=== PATIENT | female | born 1950 | race African-American/Black ===

== ENCOUNTER 2019-06-22 10:02 | Outpatient (CLI) | payer MEDICARE, SELFPAY ==
--- NOTE | 2019-06-22 | ECHO_ITS ---
Patient Info Name: Beth Ca Age: 68 years : 1950 Gender: Female Ht: 62 in Wt: 106 lbs BSA: 1.45 m2 HR: 75 bpm BP: 121 / 71 mmHg Heart Rhythm: Sinus Rhythm Technical Quality: Good Exam Date: 06/22/2019 12:01 PM Exam Location: [facility] Pulmonary Patient Status: Outpatient Admit Date: 06/22/2019 Staff Ordering Physician: Giuseppe Solomon MD Trailer Rental Clerk: Talha Vazquez RDCS Attending Provider: Giuseppe Solomon MD Referring Physician: Neha LEW; Exam Type: CA echo doppler color flow Study Info Indications Z01.810 - Encounter for preprocedural cardiovascular examination Complete two-dimensional, color flow and Doppler transthoracic echocardiogram is performed. Strain analysis performed. History/Risk Factors Clearance for chemotherapy treatment. Summary 1. Left ventricular systolic function is normal, estimated at 65-70%. 2. There is no increased left ventricular wall thickness. 3. The left ventricular diastolic function is grade I diastolic dysfunction. 4. Global longitudinal strain is mildly elevated at -16 %. 5. There is no mitral valve regurgitation. 6. Moderate pulmonary hypertension, estimated pulmonary arterial systolic pressure is 50 mmHg. 7. There is mild tricuspid valve regurgitation. Left Ventricle Left ventricular chamber dimension is normal. Left ventricular systolic function is normal, estimated at 65-70%. There is no increased left ventricular wall thickness. The left ventricular diastolic function is grade I diastolic dysfunction. Global longitudinal strain is mildly elevated at -16 %. Right Ventricle Right ventricular chamber dimension is normal. Right ventricular systolic function is normal. Left Atria Left atrial chamber dimension is normal. Right Atria Right atrial chamber dimension is normal. Aortic Valve The aortic valve is not well visualized. There is no aortic valve stenosis. There is no aortic valve regurgitation. Pulmonic Valve The pulmonic valve is not well visualized. Mitral Valve The mitral valve has thickened leaflets. There is no mitral valve regurgitation. Tricuspid Valve The tricuspid valve leaflets are normal. There is mild tricuspid valve regurgitation. Moderate pulmonary hypertension, estimated pulmonary arterial systolic pressure is 50 mmHg. Pericardium/Pleural The pericardium appears normal. There is no pericardial effusion. Inferior Vena Cava Normal inferior vena cava with >50% collapse upon inspiration consistent with normal right atrial pressure, 5 mmHg. Aorta The aortic root size at the sinus of Valsalva is normal. Left Ventricular Outflow Tract Name Value Normal LVOT 2D LVOT Diameter 1.8 cm LVOT Doppler LVOT Peak Gradient 3 mmHg LVOT Mean Gradient 2 mmHg LVOT VTI 16 cm LVOT VTI/AV VTI Ratio 0.7 LVOT Stroke Volume 40 ml LVOT CO 3.2 l/min LVOT CI 2.2 l/min/m2 Mitral Valve
--- NOTE | ~2019-06-22 | MR_ITS ---
EXAMINATION: MR breast BI wo/w con INDICATION: Malignant neoplasm of the upper outer quadrant of the left breast TECHNIQUE: Axial VIBRANT pre and dynamic post contrast, Sagittal VIBRANT post contrast, Axial T2 STIR ASSET COMPARISON: None CONTRAST: Multihance, 10 cc BREAST COMPOSITION: Heterogeneous fibroglandular tissue FINDINGS: RIGHT BREAST: Asymmetry size, right smaller than left, consistent with lumpectomy change. There is sk in thickening of the outer right breast at the site of lumpectomy. A 2.8 x 1.0 cm seroma is seen in t he posterior third of the outer breast, consistent with a postoperative seroma. There is minimal back ground parenchymal enhancement. No abnormal enhancement is present after contrast administration. No pathologically enlarged axillary or internal mammary lymph nodes are identified. LEFT BREAST: There is minimal background parenchymal enhancement. No abnormal enhancement is present after contrast administration. No pathologically enlarged axillary or internal mammary lymph nodes are identified. IMPRESSION: 1: Lumpectomy change in the upper outer quadrant right breast with small postoperative seroma but no evidence of residual disease or pathologically enlarged lymph nodes. BI-RADS Category 2: Benign finding(s). Reviewed, dictated and finalized at location A. NER WALL IMPRESSION: 1: Lumpectomy change in the upper outer quadrant right breast with small posto perative seroma but no evidence of residual disease or pathologically enlarged lymph nodes. BI-RADS Category 2: Benign finding(s).
[2019-06-22 11:12] LABS: Blood Urea Nitrogen 17 mg/dL (8-26); Estimated Glomerular Filt Rate > 60
== END 2019-06-22 10:03 | disposition home or self-care (01) ==
PROVIDERS: PCP Emergency Medicine; Visit Provider Internal Medicine Hematology & Oncology
DX: Z01.810 Encounter for preprocedural cardiovascular examination (principal); C50.412 Malignant neoplasm of upper-outer quadrant of left female breast; Z17.0 Estrogen receptor positive status [ER+]; I27.20 Pulmonary hypertension, unspecified
CPT/HCPCS: 77049; 93306; 99212; A9577; C8908; G0463

== ENCOUNTER 2019-07-13 11:05 | Inpatient (IN) | payer MEDICARE, SELFPAY ==
[2019-07-13] VITALS (9 sets, daily range): BP systolic 91–120; BP diastolic 38–57; PULSE 88–116; RESP 16–28; TEMP 36.5–37.3; O2SAT 96–100; BMI 19.3
--- NOTE | ~2019-07-13 | CT_ITS ---
EXAMINATION: CTA chest PE protocol DATE: 07/13/2019 13:48 INDICATION: Shortness of breath TECHNIQUE: Computed tomography angiography (CTA) of the chest was performed with 100 mL Omnipaque-350 intravenous contrast timed to evaluate the pulmonary arteries. Coronal maximum intensity projection 3D-reconstructions were created by the technologist. The dose-length product (DLP) was 147.92 mGy-cm. Automated exposure control and iterative reconstruction technique were employed. COMPARISON: 02/15/2019 FINDINGS: The pulmonary arteries are well-opacified. No pulmonary embolism is identified. A right int ernal jugular Port-A-Cath ends with its tip in the distal superior vena cava. There is a chronic and unchanged nodule of the right middle lobe adjacent to the major fissure. There are scattered areas of atelectasis. Moderate emphysema is noted. There is no pleural effusion or pneumothorax. No pathologi ary enlarged thoracic lymph nodes are identified. The heart size is normal. There is severe thoraci c spondylosis. IMPRESSION: 1. No pulmonary embolism or acute cardiopulmonary abnormality. Reviewed, dictated and finalized at location A. RIBUTOR SALES MANAGER
--- NOTE | 2019-07-13 11:44 | ED.SOB ---
HPI - SOB/Dyspnea General Chief Complaint: Shortness of Breath/Dyspnea Stated Complaint: lightheaded/sob Time Seen by Provider: 07/13/19 11:28 Source: patient Mode of arrival: ambulatory Limitations: no limitations History of Present Illness HPI Narrative: Pt is a 68 y/o female, with a H/O COPD, who presents to the ED with c/o SOB and low O2 Saturation that started yesterday. Pt notes that she was seen by her licensed mortgage loan officer yesterday and she was supposed to be admitted but she decided that she needed to go home and take care of things. Pt returned today to see if she still needed to be admitted. She notes that she is normally on 2.5L of home O2 and she increased her O2 up to 4L and is feeling better. Her Fitness Coordinator is Dr. Cruz. Pt denies CP or a fever. MD elicited complaint: shortness of breath Pertinent past history: COPD Onset (ago): day(s) (yesterday) Timing: improved Known history of: COPD Associated symptoms: denies other symptoms Treatment prior to arrival: oxygen Related Data Home oxygen amount: 2 liters Home Medications Medication Instructions Recorded Confirmed albuterol sulfate 2.5 mg INHALATION Q6H 03/30/19 06/22/19 aspirin 81 mg tablet,delayed 81 mg PO DAILY 03/30/19 06/22/19 release ezetimibe 10 mg tablet 10 mg PO DAILY 03/30/19 06/22/19 losartan 100 1 tablet PO DAILY 03/30/19 06/22/19 mg-hydrochlorothiazide 12.5 mg tablet simvastatin 40 mg tablet 40 mg PO DAILY 03/30/19 06/22/19 Geritol Complete 1 tablet PO EVERY OTHER DAY 05/28/19 06/22/19 Allergies Allergy/AdvReac Type Severity Reaction Status Date / Time No Known Allergies Allergy Unknown Unverified 06/04/19 12:11 Review of Systems Review of Systems: All systems reviewed & are unremarkable except as noted in HPI and below Constitutional: Constitutional: Denies fever(s) Cardiovascular: Cardiovascular: Denies chest pain Respiratory: Respiratory: Reports dyspnea [facility] Past Medical History Medical History (Updated 07/13/19 @ 14:26 by Jasmeet Messina MD) Body mass index (BMI) of 19 or less in adult (08/02/18) Breast CA (~03/2019) Cancer LT BREAST LUMPECTOMY - BREAST CA Chronic obstructive pulmonary disease O2 AT 2.5 L PER NC CONTINUOUSLY. INHALERS Chronic respiratory failure, unspecified whether with hypoxia or hypercapnia HTN (hypertension) Hypercholesterolemia Hypoxemia SERENITY (obstructive sleep apnea) Social History Social History (Updated 06/19/19 @ 15:24 by Sallie Chatterjee MD) Smoking packs per day: 1 (recently, she is cutting back to 0.5 ppd) Smoking cigarettes per day: 20.0 Years smoked: 40 Smoking pack-years: 40.00 Smoking status: Former smoker Tobacco type: cigarettes Smoking end date: 06/22/18 Alcohol intake: current Gender identity (if verbalized by the patient): Male Spiritual care concerns: No Exam Narrative: Exam Narrative: GENERAL: Well-appearing, well-nourished, and in no acute distress. HEAD: Normocephalic, atraumatic. EYES: PERRLA and EOMI. ENT: Nares clear, Mucous membranes moist. NECK: Supple. CHEST: Clear to auscultation. No respiratory distress. HEART: Regular rate and rhythm. No murmur heard. Normal peripheral pulses. ABDOMEN: Soft, non tender, non distended, normal active bowel sounds. EXTREMITIES: Normal range of motion. No edema. SKIN: Warm, dry, no rash. NEURO: No focal deficits. Alert and oriented x3. PSYCH: Normal mood and affect. Course Course Emergency Course: I informed her about her lab work, x-ray findings. I discussed with Dr. Saleem she recommended admission Consultations Consultation #1: Discussed case with Dr. Cruz, the licensed mortgage loan officer. Wants a repeat of blood gas and CT of chest. Date: 07/13/19 Time: 12:09 Consultation #2: Discussed case with Jannie King NP for the hospitalist. Accepted admission. Date: 07/13/19 Time: 14:33 Vital Signs Vital signs: Vital Signs Temperature 36.7 C 07/13/19 11:21 Pulse Rate 98 07/13/19 11:21
--- NOTE | 2019-07-13 12:13 | ECG_ITS ---
Measurements Intervals [place] Rate: 94 P: 78 CA: 109 QRS: 9 QRSD: 69 T: 61 QT: 332 QTc: 416 Interpretive Statements SINUS RHYTHM WITH SHORT CA INTERVAL BORDERLINE T WAVE ABNORMALITY- LATERAL LEADS BASELINE ARTIFACT- I, II, III, AVL, V2-V3 BORDERLINE ECG Electronically Signed On 07-13-2019 12:35:12 MANAGER [employer]IATION by Jaime Apodaca D.O.
[2019-07-13 12:27] LABS: Basophils Percent Auto 0.4 % (0.2-1.2); Eosinophils Absolute Auto 0.1 K/mm3 (0-0.3); Eosinophils Percent Auto 2.8 % (0-4.4); Hematocrit 36.8 % (37.0-47.0); Hemoglobin 10.7 g/dL (12.0-15.0); Immature Granulocyte Absolute 0.01 K/mm3 (0.00-0.031); Immature Granulocyte Percent A 0.2 % (0-0.5); Lymphocytes Absolute Auto 1.35 K/mm3 (0.9-3.2); Lymphocytes Percent Auto 28.6 % (18.3-44.2); Mean Corpuscular HGB Conc 29.1 g/dl (32-36); Mean Corpuscular Hemoglobin 22.6 pg (26-34); Mean Corpuscular Volume 77.6 fl (80-100); Mean Platelet Volume 10.3 fl (7.4-10.4); Monocytes Absolute Auto 0.2 K/mm3 (0.1-0.6); Monocytes Percent Auto 4.7 % (2.6-8.5); Neutrophils Percent Auto 63.3 % (45.5-73.1); Platelet Count Result 222 k/mm3 (150-375); Red Blood Count 4.74 M/mm3 (4.2-5.4); White Blood Count 4.7 K/mm3 (4.5-10.0)
[2019-07-13 12:28] LABS: Alveolar/Arterial O2 Gradient 10.4 mmHg; Base Excess ABG 5.9 mEq/l (+/-2.0); Fractional Inspired Oxygen 24 %; Oxygen Content ABG 15.6 %vol (16.0-22.0); Oxygen Saturation ABG 96.1 % (95.0-100.0); PO2 ABG 87.9 mmHg (80.0-100.0); PO2 FiO2 Ratio Arterial Blood 3.66 %; Total Hemoglobin 11.7 g/dL (12.0-18.0)
[2019-07-13 12:30] LABS: PCO2 ABG 61.2 mmHg (35.0-45.0)
[2019-07-13 12:31] LABS: Device NASAL CANNULA; Modified Allen's Test Pass; Site Drawn RIGHT RADIAL
[2019-07-13 12:38] LABS: Hypochromasia 2+ (NORMAL); Platelet Estimate Adequate (Adequate); Poikilocytosis 1+ (NORMAL); Stomatocytes 1+ (NORMAL)
[2019-07-13 12:39] LABS: Blood Urea Nitrogen 16 mg/dL (7-17); Calcium 8.6 mg/dL (8.4-10.2); Carbon Dioxide 35 mmol/L (22-30); Chloride 94 mmol/L (98-107); Estimated CRCL calculation 52 ml/min; Estimated Glomerular Filt Rate > 60; Glucose 77 mg/dL (65-105); Potassium 4.1 mmol/L (3.4-5.0); Sodium 137 mmol/L (137-145)
[2019-07-13 12:48] LABS: NT Pro B Type Natriuretic Pept 14 PG/ML (5-100)
--- NOTE | 2019-07-13 15:29 | ADMGEN ---
This patient, Beth Ca, was admitted to IMU Room 231-01.@ [id number]. Patient oriented to hospital policies and general routines including ID bracelet, bed and alarms, visiting hours, pain management, procedures, bathroom and other care routines, personal items, smoking policy, room service/diet, and visiting hours. Valuables list has been completed. O2 on 4l/nc- spo2 98%- decreased to 2.5 l/nc(home setting) spo2 96% Information on how to activate the Rapid Response Team has been discussed. Patient are encouraged to report perceived risks to care and to ask questions if they do not understand what they are told or what they should do.
--- NOTE | 2019-07-13 19:23 | PM.CNPUL ---
Assessment and Plan Assessment and plan (1) Acute and chronic respiratory failure ([id number]): Qualifiers: Respiratory failure complication: hypoxia and hypercapnia Qualified Code(s): J96.21 - Acute and chronic respiratory failure with hypoxia; J96.22 - Acute and chronic respiratory failure with hypercapnia Code(s): J96.20 - Acute and chronic respiratory failure, unspecified whether with hypoxia or hypercapnia Status: Acute Assessment and Plan: Will treat for atelectasis with steroids, pulmonary toilet, Cornet, bronchodilators., steroids; she is adamant about not being treated for . . Her ABG shows chronic hypercapnea with compensation, so she would be a candidate for NPPV, but does not want to use anything with a mask. CTA today 07/13/2019: The pulmonary arteries are well-opacified. No pulmonary embolism is identified. A right internal jugular Port-A-Cath ends with its tip in the distal superior vena cava. There is a chronic and unchanged nodule of the right middle lobe adjacent to the major fissure. There are scattered areas of atelectasis. Moderate emphysema is noted. There is no pleural effusion or pneumothorax. No pathologically enlarged thoracic lymph nodes are identified. The heart size is normal. There is severe thoracic spondylosis. (2) Chronic obstructive pulmonary disease: Code(s): J44.9 - Chronic obstructive pulmonary disease, unspecified Status: Chronic Assessment and Plan: She is on rescue medication and controller meds for COPD however not clear that she is using these regularly. (3) SERENITY (obstructive sleep apnea): Code(s): G47.33 - Obstructive sleep apnea (adult) (pediatric) Status: Chronic Assessment and Plan: Does not want treatment with PAP therapy. Says she has failed it in the past. 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 Chatterjee's note 03/2019. Dr. Keller placed a right Port-a-cath 06/04/2019 (5) Atelectasis: Code(s): J98.11 - Atelectasis Status: Acute History of Present Illness History of Present Illness Consult date: 07/13/19 Chief complaint: acute on resp failure Narrative: NEW CONSULT: Beth Ca is a 68 yo female pt in our practice who was in the office yesterday. Dr. Guzmán saw her the day before for a routine visit, sat was 78% in his office with no real symptoms. She denied worsening shortness of breath. CXR was stable, ABG = 7.37/47.7/43.7 pO2 on 2.5 L/min. I asked her to go to the ER, she went home. Today she presented to the ER, had a saturation of 100% on 2 L/min. This is higher than she has had in the office, usually 88% - low 90%. Repeat ABG = 7.35 / 61.2 / 87.5 on 2 L/min. CTA was negative for PE. She is admitted for acute on chronic respiratory failure with increased pCO2 with hypoxemia. She says that she has had a cold for aweek, increased shortness of breath, feels that her chest is congested, no chest pain, fever, sore throat. [facility] Past Medical History Medical History (Updated 07/13/19 @ 20:07 by Jose Donaldson MD) Body mass index (BMI) of 19 or less in adult (08/02/18) Breast CA (~03/2019) Cancer LT BREAST LUMPECTOMY - BREAST CA Chronic obs
--- NOTE | 2019-07-13 19:49 | PM.IMHP ---
H&P: HPI History of Present Illness Chief complaint: acute on resp failure Narrative: This is a pleasant 68 year old female with known chronic respiratory failure on 2L of oxygen at home and left sided breast cancer currently being treated with weekly chemotherapy who presented to the hospital today after being found to be hypoxic yesterday at her Pulmonoogist's office. The patient has had increased URI symptoms including sore throat and congestion and believes she has been coming down with a cold. She saw her primary care doctor 2 days ago and was found to be hypoxic with a pulse oximetry of 78% but not short of breath. She called her circuit manager, Dr. Cruz who saw her yesterday in her office. She was found have an ABG which demonstrated 7.37/47.7/43.7 pO2 on 2.5 L/min. She was instructed to come to the hospital to be admitted yesterday but she decided instead to go home as she had some things to do. Today she presented to the hospital as she thought maybe should still needed to be admitted? Tonight she denies any worsening shortness of breath, chest pain, cough, or worsening wheezing. Repeat ABG obtained today demonstrated compensated chronic hypercapnia but no hypoxemia. No other complaints. Pulmonology, Dr. Cruz has been consulted by ER provider. Review of Systems Review of Systems: All systems reviewed & are unremarkable except as noted in HPI and below PMFSH Past Medical History Medical History Body mass index (BMI) of 19 or less in adult (08/02/18) Breast CA (~03/2019) Cancer LT BREAST LUMPECTOMY - BREAST CA Chronic obstructive pulmonary disease O2 AT 2.5 L PER NC CONTINUOUSLY. INHALERS Chronic respiratory failure, unspecified whether with hypoxia or hypercapnia (Unknown) HTN (hypertension) Hypercholesterolemia Hypoxemia SERENITY (obstructive sleep apnea) Family History Family History Father Family history of lung cancer Mother Family history of malignant neoplasm of ovary Social History Social History Smoking packs per day: 1 (recently, she is cutting back to 0.5 ppd) Smoking cigarettes per day: 20.0 Years smoked: 45 Smoking pack-years: 45.00 Smoking status: Light tobacco smoker Tobacco type: cigarettes Smoking end date: 06/22/18 Alcohol intake: former Substance use: never Gender identity (if verbalized by the patient): Female Spiritual care concerns: No Agree to blood products: Yes Meds Home Medications and Allergies Home Medications Medication Instructions Recorded Confirmed Type albuterol sulfate 2.5 mg INHALATION Q6H 03/30/19 07/13/19 History aspirin 81 mg tablet,delayed 81 mg PO DAILY 03/30/19 07/13/19 History release ezetimibe 10 mg tablet 10 mg PO HS 03/30/19 07/13/19 History losartan 100 1 tablet PO DAILY 03/30/19 07/13/19 History mg-hydrochlorothiazide 12.5 mg tablet simvastatin 40 mg tablet 40 mg PO DAILY 03/30/19 07/13/19 History budesonide-formoterol HFA 160 2 puff INHALATION Q12H #10.2 gm 04/05/19 07/13/19 Rx mcg-4.5 mcg/actuation aerosol inhaler umeclidinium 62.5 mcg/actuation 1 inhalation INHALATION DAILY #30 04/09/19 07/13/19 Rx blister powder for inhalation each Geritol Complete 1 tablet PO EVERY OTHER DAY 05/28/19 07/13/19 History lidocaine-prilocaine 1 applic TOPICAL ONCE 07/13/19 07/13/19 History megestrol 40 mg PO DAILY 07/13/19 07/13/19 History ondansetron 4 mg PO Q8H PRN 07/13/19 07/13/19 History Allergies Allergy/AdvReac Type Severity Reaction Status Date / Time No Known Allergies Allergy Unknown Unverified 06/04/19 12:11 Vital Signs Vital Signs - 24 hr 07/13/19 11:21 07/13/19 15:41 07/13/19 16:00 Temperature 36.7 C 36.7 C Pulse Rate 98 108 H 101 H Respiratory Rate 28 H 16 Blood Pressure 109/53 L 93/38 L Pulse Ox
[2019-07-13] MEDS: DORNASE ALFA INH SOLN 1 MG/ML 2.5 ML AMP 2.5 MG INHALATION (20:35)
--- NOTE | 2019-07-13 21:03 | PC.NURSE ---
This patient, Beth Ca, was transferred to [facility] on 07/13/19 at 2103. Personal belongings sent with patient. Belongings list checked and signed. Report given to Sydnee CHAPIN. Appropriate documentation sent with patient.
--- NOTE | 2019-07-13 21:05 | PC.NURSE ---
Patient was transferred via bed from IMU at 2105. Patient belongings sent with her.
[2019-07-13] MEDS: methylPREDNISolone SOD SUCC 40 MG VIAL IV PUSH (21:54)
[2019-07-13] MEDS: EZETIMIBE 10 MG TABLET PO (21:54)
[2019-07-13] MEDS: ALBUTEROL SULFATE NEB 2.5 MG/0.5 ML INH 5 MG INHALATION (22:18)
[2019-07-13] MEDS: IPRATROPIUM BR 0.02% INH SOLN 0.5 MG/2.5 ML VIAL INHALATION (22:18)
[2019-07-14] VITALS (10 sets, daily range): BP systolic 116–136; BP diastolic 47–57; PULSE 78–117; RESP 16–20; TEMP 36.9–37.5; O2SAT 95–100
[2019-07-14] MEDS: IPRATROPIUM BR 0.02% INH SOLN 0.5 MG/2.5 ML VIAL INHALATION ×3 (02:36→12:46)
[2019-07-14] MEDS: ALBUTEROL SULFATE NEB 2.5 MG/0.5 ML INH 5 MG INHALATION ×3 (02:36→12:46)
[2019-07-14] MEDS: methylPREDNISolone SOD SUCC 40 MG VIAL IV PUSH ×2 (05:28→14:47)
[2019-07-14 05:58] LABS: Blood Urea Nitrogen 16 mg/dL (7-17); Calcium 8.7 mg/dL (8.4-10.2); Carbon Dioxide 31 mmol/L (22-30); Chloride 98 mmol/L (98-107); Estimated CRCL calculation 52 ml/min; Estimated Glomerular Filt Rate > 60; Glucose 139 mg/dL (65-105); Potassium 4.4 mmol/L (3.4-5.0); Sodium 135 mmol/L (137-145)
[2019-07-14] MEDS: DORNASE ALFA INH SOLN 1 MG/ML 2.5 ML AMP 2.5 MG INHALATION (07:49)
[2019-07-14] MEDS: LOSARTAN POTASSIUM 100 MG TABLET PO (08:29)
[2019-07-14] MEDS: hydroCHLOROthiazide 12.5 MG CAPSULE PO (08:29)
[2019-07-14] MEDS: SIMVASTATIN 20 MG TABLET 40 MG PO (08:29)
[2019-07-14] MEDS: MEGESTROL ACETATE (*CHEMO) 40 MG TABLET PO (08:29)
[2019-07-14] MEDS: MULTIVITAMINS /C LUTEIN (CENTRUM SILVER) TABLET *BKC 1 TAB PO (08:29)
[2019-07-14 09:34] LABS: Basophils Percent Auto 0.2 % (0.2-1.2); Hematocrit 33.8 % (37.0-47.0); Immature Granulocyte Absolute 0.02 K/mm3 (0.00-0.031); Immature Granulocyte Percent A 0.4 % (0-0.5); Lymphocytes Absolute Auto 0.35 K/mm3 (0.9-3.2); Lymphocytes Percent Auto 6.4 % (18.3-44.2); Mean Corpuscular HGB Conc 29.6 g/dl (32-36); Mean Corpuscular Hemoglobin 22.6 pg (26-34); Mean Corpuscular Volume 76.5 fl (80-100); Mean Platelet Volume 10.1 fl (7.4-10.4); Monocytes Percent Auto 0.2 % (2.6-8.5); Neutrophils Percent Auto 92.8 % (45.5-73.1); Platelet Count Result 210 k/mm3 (150-375); Red Blood Count 4.42 M/mm3 (4.2-5.4); Red Cell Distribution Width 14.8 % (11.5-14.5); White Blood Count 5.4 K/mm3 (4.5-10.0)
[2019-07-14 10:36] LABS: Hypochromasia 1+ (NORMAL); Platelet Estimate Adequate (Adequate)
[2019-07-14] MEDS: ASPIRIN 81 MG CHEWABLE TABLET PO (10:58)
--- NOTE | 2019-07-14 16:48 | PM.DS ---
DS: Diagnosis Admitting Diagnosis Admitting Diagnosis: Chronic respiratory failure, unspecified whether with hypoxia or hypercapnia Discharge Diagnosis (1) Chronic respiratory failure, unspecified whether with hypoxia or hypercapnia: Onset Date: Unknown Qualifiers: Respiratory failure complication: unspecified whether with hypoxia or hypercapnia Qualified Code(s): J96.10 - Chronic respiratory failure, unspecified whether with hypoxia or hypercapnia Code(s): J96.10 - Chronic respiratory failure, unspecified whether with hypoxia or hypercapnia Status: Chronic Assessment and Plan: Date of Service 07/14/19 Ms. Ca is a 68yo F with history of COPD, chronic respiratory failure on 2.5L O2 at home, breast cancer, and hypertension who presented to the ED at the direction of Dr Cruz. She had recently been in her PCP's office, Dr Guzmán, when she was found to have O2 saturations in mid-70s% on her normal 2.5 L home O2. She then followed up in Dr Cruz's office the following day at which time a blood gas and chest XR was performed. This blood gas demonstrated a pO2 much lower than her normal at 43.7 and O2 saturation 78%. During each of these outpatient visits, patient denied any increased shortness of breath. Dr Cruz instructed the patient to proceed to the ED, but the patient went home. Patient returned to ED the following day and was admitted for acute on chronic respiratory failure with hypercapnia and hypoxemia. Her O2 saturations were now > 90% on her normal home requirement of 2.5L O2. CTA chest demonstrated no evidence of pulmonary embolism or any acute cardiopulmonary abnormality. Dr Cruz suggested she may be sufferent from intermittent atelectasis or plugging. She was feeling well and offered no complaints. She was treated with nebulized bronchodilators and IV solu-medrol. She was discharged with a tapered course of prednisone and instructed to follow up with Dr Cruz in 1 to 2 weeks. She was instructed to continue her Cornet therapy at home, 10 repetitions 4 times daily. She was hemodynamically stable for discharge 07/14/19. (2) Chronic obstructive pulmonary disease: Qualifiers: COPD type: unspecified COPD Qualified Code(s): J44.9 - Chronic obstructive pulmonary disease, unspecified Code(s): J44.9 - Chronic obstructive pulmonary disease, unspecified Status: Chronic Assessment and Plan: (3) Breast CA: Onset Date: ~03/2019 Qualifiers: Breast location: unspecified site of breast Estrogen receptor status: unspecified Patient sex: female Laterality: left Qualified Code(s): C50.912 - Malignant neoplasm of unspecified site of left female breast Code(s): C50.919 - Malignant neoplasm of unspecified site of unspecified female breast Status: Chronic Assessment and Plan: Follow up with her established oncologist as scheduled. Port a Cath to right chest. (4) Hypercholesterolemia: Code(s): E78.00 - Pure hypercholesterolemia, unspecified Status: Chronic Assessment and Plan: Continue exetimibe. (5) HTN (hypertension): Qualifiers: Hypertension type: unspecified Qualified Code(s): I10 - Essential (primary) hypertension Code(s): I10 - Essential (primary) hypertension Status: Chronic Assessment and Plan: Blood pressure stable. Continue home losartan - hctz. (6) SERENITY (obstructive sleep apnea): Code(s): G47.33 - Obstructive sleep apnea (adult) (pediatric) Status: Chronic Assessment and Plan: Dr Cruz plans to help arrange CPAP or Trilogy at home as an outpatient if the patient is agreeable. To other staff she adamantly declined any device with a mask. To me, she seemed agreeable at time of my exam. DS: Summary Time Spent with Patient Time attestation: Total time sp
[2019-07-14] MEDS: HEPARIN SOD FLUSH 500 UNITS/5 ML SYRINGE IV PUSH (17:32)
--- NOTE | 2019-07-19 14:09 | PC.NURSE ---
Blood cx is negative.
== END 2019-07-14 18:00 | disposition home or self-care (01) | DRG 189 ==
LOC: ANHED 14:57 → ANHIMU 19:48 → ANH3MEDSUR 07-14 02:16 → ANHIMU 07-18 09:55
PROVIDERS: Family Medicine; Admitting Provider Internal Medicine; Emergency Provider Family Medicine; PCP Emergency Medicine; Visit Provider Internal Medicine
DX: J96.10 Chronic respiratory failure, unspecified whether with hypoxia or hypercapnia (principal); Z99.81 Dependence on supplemental oxygen; C50.912 Malignant neoplasm of unspecified site of left female breast; J44.9 Chronic obstructive pulmonary disease, unspecified; I10 Essential (primary) hypertension; E78.00 Pure hypercholesterolemia, unspecified; G47.33 Obstructive sleep apnea (adult) (pediatric); Z87.891 Personal history of nicotine dependence
CPT/HCPCS: 36415; 36600; 71046; 71275; 80048; 82805; 83880; 85025; 87040; 93005; 94640; 94667; 94668; 99291; A9270; J1642; J2920; Q9967

== ENCOUNTER 2019-12-27 10:00 | Outpatient (CLI) | payer MEDICARE, SELFPAY ==
[2019-12-27 10:00] VITALS: PULSE 93; O2SAT 88
[2019-12-27 10:05] VITALS: PULSE 90; O2SAT 90
[2019-12-27 10:10] VITALS: PULSE 96; O2SAT 87
[2019-12-27 10:15] VITALS: PULSE 111; O2SAT 90
[2019-12-27 10:25] VITALS: O2SAT 89
--- NOTE | 2019-12-27 11:50 | HOMEO2EVAL ---
Home Oxygen Evaluation RC: Home Oxygen (O2) Evaluation Start: 12/27/19 11:39 Freq: Status: Active Protocol: RPE Activity Type Activity Date Activity User E-Sign Co-Sign Detail Recorded Client Recorded Date Recorded By Document 12/27/19 10:00 [email or web address] 12/27/19 11:49 NAZ Document 12/27/19 10:05 [email or web address] 12/27/19 11:49 NAZ Document 12/27/19 10:10 [email or web address] 12/27/19 11:49 NAZ Document 12/27/19 10:15 [email or web address] [email or web address] 12/27/19 11:49 NAZ Document 12/27/19 10:25 [email or web address] [email or web address] 12/27/19 11:49 NAZ 12/27/19 12/27/19 12/27/19 10:00 10:05 10:10 Home O2 Evaluation Test Phase Resting Resting Exercise Oxygen Delivery Room Air Nasal Cannula Nasal Cannula Oxygen Flow Rate (L/min) 1 1 Pulse Oximetry (90-100 %) 88 L 90 87 L Pulse Rate (60-100 beats/min) 93 90 96 Activity Tolerance Ambulation Distance (feet) Treatment Charges O2 Evaluation 12/27/19 12/27/19 10:15 10:25 Home O2 Evaluation Test Phase Exercise Resting Oxygen Delivery Nasal Cannula Nasal Cannula Oxygen Flow Rate (L/min) 2 1 Pulse Oximetry (90-100 %) 90 89 L Pulse Rate (60-100 beats/min) 111 H Activity Tolerance Good Ambulation Distance (feet) 500 Treatment Charges
== END 2019-12-27 10:01 | disposition home or self-care (01) ==
LOC: ANHPFT 10:04
PROVIDERS: PCP Emergency Medicine; Visit Provider Nurse Practitioner Family
DX: J96.10 Chronic respiratory failure, unspecified whether with hypoxia or hypercapnia (principal)
CPT/HCPCS: 94618

== ENCOUNTER 2020-05-30 09:47 | Outpatient (CLI) | payer MEDICARE, SELFPAY ==
--- NOTE | 2020-05-30 | ECHO_ITS ---
Patient Info Name: Beth Ca Age: 69 years : 1950 Gender: Female Ht: 62 in Wt: 110 lbs BSA: 1.48 m2 HR: 101 bpm BP: 136 / 112 mmHg Technical Quality: Good Exam Date: 05/30/2020 10:17 AM Exam Location: [facility] Patient Status: Outpatient Admit Date: 05/30/2020 Staff Ordering Physician: Giuseppe Solomon MD Pack Master: Karon Garcia RDCS Attending Provider: Giuseppe Solomon MD Referring Physician: Neha LEW; Exam Type: CA echo doppler color flow Study Info Indications C50.412 - Malignant neoplasm of upper-outer quadrant of left female breast Complete two-dimensional, color flow and Doppler transthoracic echocardiogram is performed. Summary 1. Complete two-dimensional, color flow and Doppler transthoracic echocardiogram is performed. 2. Left ventricular chamber dimension is normal. 3. Left ventricular systolic function is normal, estimated at 65-70%. 4. The left ventricular diastolic function is grade I diastolic dysfunction. 5. E/e' 6 is not elevated. 6. There is mild aortic valve sclerosis. 7. There is trace tricuspid valve regurgitation. 8. Mild pulmonary hypertension, estimated pulmonary arterial systolic pressure is 42 mmHg. Left Ventricle E/e' 6 is not elevated. Left ventricular chamber dimension is normal. Left ventricular systolic function is normal, estimated at 65-70%. The left ventricular diastolic function is grade I diastolic dysfunction. Right Ventricle Right ventricular chamber dimension is normal. Right ventricular systolic function is normal. Left Atria Left atrial chamber dimension is normal. Right Atria Right atrial chamber dimension is normal. Aortic Valve The aortic valve is trileaflet. There is mild aortic valve sclerosis. There is no aortic valve stenosis. There is no aortic valve regurgitation. Pulmonic Valve There is no pulmonic regurgitation. Mitral Valve There is no mitral valve stenosis. There is no mitral valve regurgitation. Tricuspid Valve There is trace tricuspid valve regurgitation. Mild pulmonary hypertension, estimated pulmonary arterial systolic pressure is 42 mmHg. Pericardium/Pleural There is no pericardial effusion. Inferior Vena Cava Normal inferior vena cava with >50% collapse upon inspiration consistent with normal right atrial pressure, 5 mmHg. Aorta The aortic root size at the sinus of Valsalva is normal. Left Ventricular Outflow Tract Name Value Normal LVOT 2D LVOT Diameter 2.0 cm LVOT Doppler LVOT Peak Gradient 6 mmHg LVOT Mean Gradient 3 mmHg LVOT VTI 20 cm LVOT VTI/AV VTI Ratio 1.0 LVOT Stroke Volume 65 ml LVOT CO 16.6 l/min LVOT CI 11.3 l/min/m2 Pulmonic Valve Name Value Normal PV Doppler
== END 2020-05-30 09:48 | disposition home or self-care (01) ==
LOC: ANHCARD 09:48
PROVIDERS: PCP Emergency Medicine; Visit Provider Internal Medicine Hematology & Oncology
DX: C50.412 Malignant neoplasm of upper-outer quadrant of left female breast (principal); Z17.0 Estrogen receptor positive status [ER+]; I27.20 Pulmonary hypertension, unspecified
CPT/HCPCS: 93306

== ENCOUNTER 2020-09-19 12:11 | Outpatient (CLI) | payer MEDICARE, SELFPAY ==
--- NOTE | 2020-09-19 | ECHO_ITS ---
Patient Info Name: Beth Ca Age: 69 years : 1950 Gender: Female Ht: 60 in Wt: 106 lbs BSA: 1.43 m2 HR: 78 bpm BP: 125 / 60 mmHg Technical Quality: Good Exam Date: 09/19/2020 1:14 PM Exam Location: [facility] Patient Status: Outpatient Admit Date: 09/19/2020 Staff Ordering Physician: Giuseppe Solomon MD Open Soaper Tender: Karon Garcia RDCS Attending Provider: Giuseppe Solomon MD Referring Physician: Neha LEW; Exam Type: CA echo doppler color flow Study Info Indications - malignant neoplasm of right breast Complete two-dimensional, color flow and Doppler transthoracic echocardiogram is performed. Complete two-dimentional, color flow and Doppler transthoracic echocardiogram is performed with agitated saline and with contrast to opacify the left ventricle and to improve the delineation of the left ventricle endocardial borders. Summary 1. Complete two-dimensional, color flow and Doppler transthoracic echocardiogram is performed. 2. Left ventricular chamber dimension is normal. 3. Left ventricular systolic function is normal, estimated at 60-65%. 4. The left ventricular diastolic function is normal. 5. E/e' 6 is not elevated. 6. There is trace tricuspid valve regurgitation. 7. Mild pulmonary hypertension, estimated pulmonary arterial systolic pressure is 45 mmHg. Left Ventricle E/e' 6 is not elevated. Left ventricular chamber dimension is normal. Left ventricular systolic function is normal, estimated at 60-65%. The left ventricular diastolic function is normal. Right Ventricle Right ventricular systolic function is normal and with normal TAPSE 2.0 cm. Right ventricular chamber dimension is normal. Left Atria Left atrial chamber dimension is normal. Right Atria Right atrial chamber dimension is normal. Aortic Valve The aortic valve is not well visualized. Cannot determine number of aortic valve leaflets. There is no aortic valve stenosis. There is no aortic valve regurgitation. Pulmonic Valve There is no pulmonic regurgitation. Mitral Valve There is no mitral valve stenosis. There is no mitral valve regurgitation. Tricuspid Valve There is trace tricuspid valve regurgitation. Mild pulmonary hypertension, estimated pulmonary arterial systolic pressure is 45 mmHg. Pericardium/Pleural There is no pericardial effusion. Inferior Vena Cava Normal inferior vena cava with >50% collapse upon inspiration consistent with normal right atrial pressure, 5 mmHg. Aorta The aortic root size at the sinus of Valsalva is normal. Left Ventricular Outflow Tract Name Value Normal LVOT 2D LVOT Diameter 2.0 cm LVOT Doppler LVOT Peak Gradient 4 mmHg LVOT Mean Gradient 2 mmHg LVOT VTI 20 cm LVOT VTI/AV VTI Ratio 0.8 LVOT Stroke Volume 61 ml LVOT CO 12.6 l/min LVOT CI 8.8 l/min/m2 Pulmonic Valve
== END 2020-09-19 12:12 | disposition home or self-care (01) ==
PROVIDERS: PCP Emergency Medicine; Visit Provider Internal Medicine Hematology & Oncology
DX: C50.411 Malignant neoplasm of upper-outer quadrant of right female breast (principal); Z17.0 Estrogen receptor positive status [ER+]; Z51.11 Encounter for antineoplastic chemotherapy
CPT/HCPCS: 93306

== ENCOUNTER 2021-04-16 12:59 | Emergency (ER) | payer MEDICARE, SELFPAY ==
--- NOTE | ~2021-04-16 | XR_ITS ---
EXAMINATION: XR chest 2V EXAM DATE: 04/16/2021 13:41 INDICATION: sob, chest pain, weakness, weight loss. TECHNIQUE: Frontal and lateral projections of the chest obtained and reviewed. Comparison is made to prior examination from 07/12/2019. FINDINGS: The lungs are hyperinflated which can be seen with chronic obstructive pulmonary disease ( a clinical diagnosis of functional impairment), but is not diagnostic of it. Again there is linear le ft perihilar atelectasis or scarring. There is right-sided portacatheter. There is no pneumothorax gomes spected. No sizable pleural effusion. Cardiomediastinal silhouette is normal. There is aortic arterio sclerosis. There are bony degenerative changes. IMPRESSION: 1. Chronic hyperinflation and left perihilar scarring/atelectasis. Reviewed, dictated and finalized at location A. NICAL SALES SPECIALIST
--- NOTE | ~2021-04-16 | CT_ITS ---
EXAMINATION: CTA chest PE protocol EXAM DATE: 04/16/2021 16:55 INDICATION: hx of breast cancer, dyspnea, chest pain. TECHNIQUE: Spiral CTA of the chest (pulmonary arteries) was performed with 100 cc Omnipaque 350 intr avenous contrast injection. Images were acquired during the pulmonary arterial phase. Coronal maxi mum intensity projection 3D-reconstructions were created by the technologist on dedicated workstation . Axial, coronal and sagittal reformatted images were reviewed. The dose-length product (DLP) for t his examination was 203.06 mGy-cm. The exposure was tailored according to patient size (auto mA exp osure control), and iterative reconstruction (ASIR) was used as additional dose reduction technique. Comparison is made to prior examination from 07/13/2019. FINDINGS: There is contained pocket of fluid and gas along the left side of the esophagus at the thor acic inlet with air-fluid level, region measuring about 2 x 3 cm, probably an esophageal diverticulum . Follow-up nonemergent barium esophagram should be considered. Pulmonary arteries are well opacified and without intraluminal filling defects. No thoracic aortic dissection. There is moderate to severe emphysema. There is lingular linear scarring/atelectasis, mi ld progression compared to prior study. Chronic hyperinflation. There are no pleural or pericardial effusions. Tracheobronchial tree is patent. There is no mediastinal, hilar or axillary lymphadeno katarina. There is no pneumothorax. Heart normal in size. There is mild coronary arterial calcific ation, arterial sclerosis. Upper abdomen is unremarkable. There is mild to moderate thoracic spond ylosis without osteoblastic or osteolytic lesions identified. IMPRESSION: 1. No acute cardiac pulmonary findings. 2. Lingular scarring/atelectasis. 3. Emphysema and hyperinflation. 4. Esophageal diverticulum. Reviewed, dictated and finalized at location A. INSPECTOR
[2021-04-16 13:01] VITALS: BP 141/61; PULSE 70; RESP 28; TEMP 35.9; O2SAT 95
--- NOTE | 2021-04-16 13:06 | ECG_ITS ---
Measurements Intervals [place] Rate: 92 P: 82 KS: 116 QRS: 64 QRSD: 69 T: 59 QT: 264 QTc: 327 Interpretive Statements SINUS RHYTHM WITH SINUS ARRHYTHMIA WITH SHORT [place] INTERVAL NONSPECIFIC T-WAVE ABNORMALITY- DIFFUSE LEADS BASELINE ARTIFACT- I, II, III, AVR, AVL, AVF, V1-V6 BORDERLINE ECG Electronically Signed On 04-16-2021 13:15:05 UPPER AND BOTTOM LACER HAND by Jaime Apodaca D.O.
[2021-04-16 13:28] LABS: Basophils Percent Auto 0.3 % (0.2-1.2); Eosinophils Absolute Auto 0.1 K/mm3 (0-0.3); Hematocrit 34.3 % (37.0-47.0); Hemoglobin 9.8 g/dL (12.0-15.0); Immature Granulocyte Absolute 0.01 K/mm3 (0.00-0.031); Immature Granulocyte Percent A 0.1 % (0-0.5); Lymphocytes Absolute Auto 0.81 K/mm3 (0.9-3.2); Lymphocytes Percent Auto 11.6 % (18.3-44.2); Mean Corpuscular HGB Conc 28.6 g/dl (32-36); Mean Corpuscular Hemoglobin 22.5 pg (26-34); Mean Corpuscular Volume 78.7 fl (80-100); Mean Platelet Volume 9.6 fl (7.4-10.4); Monocytes Absolute Auto 0.8 K/mm3 (0.1-0.6); Neutrophils Absolute Auto 5.2 K/mm3 (1.3-6.7); Platelet Count Result 164 k/mm3 (150-375); Red Blood Count 4.36 M/mm3 (4.2-5.4); Red Cell Distribution Width 14.7 % (11.5-14.5)
[2021-04-16 13:41] LABS: INR 0.9; Partial Thromboplastin Time 25.8 SECONDS (22.3-36.8); Prothrombin Time 12.1 Seconds (11.1-14.7)
[2021-04-16 13:42] LABS: Alanine Aminotransferase 17 U/L (4-35); Alkaline Phosphatase 51 U/L (38-126); Aspartate Amino Transferase 26 U/L (14-36); Bilirubin,Total 0.3 mg/dL (0.2-1.3); Blood Urea Nitrogen 14 mg/dL (7-17); Calcium 9.2 mg/dL (8.4-10.2); Carbon Dioxide > 40 mmol/L (22-30); Chloride 91 mmol/L (98-107); Estimated CRCL calculation 46 ml/min; Estimated Glomerular Filt Rate > 60; Glucose 124 mg/dL (65-110); Lipase 43 U/L (23-300); Potassium 3.2 mmol/L (3.4-5.0); Sodium 135 mmol/L (137-145)
[2021-04-16 13:50] LABS: Troponin I < 0.012 ng/mL (0.000-0.034)
[2021-04-16 14:00] LABS: Platelet Estimate Adequate (Adequate)
[2021-04-16 14:01] LABS: Hypochromasia 2+ (NORMAL); Stomatocytes 1+ (NORMAL)
--- NOTE | 2021-04-16 14:33 | ED.CHESTPAIN ---
HPI - Chest Pain General Chief Complaint: Chest Pain Stated Complaint: low blood pressure Time Seen by Provider: 04/16/21 14:32 Source: patient Mode of arrival: ambulatory Limitations: no limitations History of Present Illness HPI narrative: Patient is a 70-year-old female with a history of COPD, chronic respiratory failure on 6 L via nasal cannula, breast cancer, currently undergoing chemotherapy, seen by Dr. Mast, presenting for evaluation of chest tightness. Patient states that she saw her primary care physician this morning, he referred her to this emergency department to be evaluated due to her chest tightness. Patient reports that she has chest tightness which is a squeezing sensation when she ambulates or exerts herself. She denies any chest pain at the time of my assessment. Patient states that she has had chest tightness for several weeks but due to some financial and family constraints she has delayed her care until she could see her primary care physician this morning. Patient states that she has not had any increasing shortness of breath. No fever, cough. No lower extremity swelling or pain. Patient does have a history of breast cancer. She denies history of coagulopathy. She is not on any anticoagulation. Patient states her life has been quite stressful recently, she had a cousin recently committed suicide and a is tomorrow. Patient states that she is intermittently compliant with her COPD medications due to financial constraints. The patient's legal director is Dr. Red. Patient states she missed her last appointment with him. Patient denies concurrent neck pain, back pain, jaw pain with the chest tightness. No ripping or tearing sensation to the flanks. No hemoptysis. Related Data Home Medications Medication Instructions Recorded Confirmed aspirin 81 mg tablet,delayed 81 mg PO DAILY 03/30/19 09/25/20 release ezetimibe 10 mg tablet 10 mg PO HS 03/30/19 09/25/20 losartan 100 1 tablet PO DAILY 03/30/19 09/25/20 mg-hydrochlorothiazide 12.5 mg tablet simvastatin 40 mg tablet 40 mg PO DAILY 03/30/19 09/25/20 lidocaine-prilocaine 1 applic TOPICAL ONCE 07/13/19 09/25/20 megestrol 40 mg PO DAILY 07/13/19 09/25/20 ondansetron 4 mg PO Q8H PRN 07/13/19 09/25/20 ferrous sulfate 325 mg PO BID 09/03/19 09/25/20 vitamin B complex [B 1 tablet PO DAILY 09/03/19 09/25/20 Complex-Vitamin B12] anastrozole [Arimidex] 1 mg PO DAILY 02/11/20 09/25/20 Allergies Allergy/AdvReac Type Severity Reaction Status Date / Time No Known Allergies Allergy Unknown Verified 09/02/20 11:28 Review of Systems Review of Systems: CONSTITUTIONAL: Denies fever, chills, or sweats. EYES: Denies visual changes, redness, or discharge. ENT: Denies rhinorrhea, congestion, sore throat, or otalgia. CARDIOVASCULAR: Denies current chest pain, palpitations, or edema. RESPIRATORY: Reports chronic cough and dyspnea GASTROINTESTINAL: Denies abdominal pain, nausea, vomiting, or diarrhea. GENITOURINARY: Denies dysuria or hematuria. SKIN: Denies rash or itching. MUSCULOSKELETAL: Denies back pain, joint pain, or myalgia. NEUROLOGIC: Denies headache, numbness, or weakness. [facility] Past Medical History Medical History (Updated 04/16/21 @ 17:13 by Mamta Sheldon MD) Body mass index (BMI) of 19 or less in adult (08/02/18) Breast CA (~03/2019) Cancer LT BREAST LUMPECTOMY - BREAST CA Chronic obstructive pulmonary disease O2 AT 2.5 L PER NC CONTINUOUSLY. INHALERS Chronic respiratory failure, unspecified whether with hypoxia or hypercapnia (Unknown) HTN (hypertension) Hypercholesterolemia Hypoxemia SERENITY (obstructive sleep apnea) Family History Family History Father Family history of lung cancer Mother Family history of malignant neoplasm of ovary Social History Social History Smoking packs pe
[2021-04-16 16:56] LABS: Troponin I < 0.012 ng/mL (0.000-0.034)
[2021-04-16 17:40] VITALS: BP 136/84; PULSE 85; RESP 24; O2SAT 96
== END 2021-04-16 17:41 | disposition home or self-care (01) ==
LOC: ANHED 17:26
PROVIDERS: Emergency Medicine; Emergency Provider Emergency Medicine; PCP Emergency Medicine
DX: R07.89 Other chest pain (principal); J44.9 Chronic obstructive pulmonary disease, unspecified; C50.919 Malignant neoplasm of unspecified site of unspecified female breast; I10 Essential (primary) hypertension; E78.00 Pure hypercholesterolemia, unspecified; G47.33 Obstructive sleep apnea (adult) (pediatric); Z92.21 Personal history of antineoplastic chemotherapy; Z79.899 Other long term (current) drug therapy; Z79.82 Long term (current) use of aspirin; Z87.891 Personal history of nicotine dependence
CPT/HCPCS: 36415; 71046; 71275; 80053; 83690; 84484; 85025; 85610; 85730; 93005; 99284; Q9967